=== PATIENT | male | born 1995 | race Hispanic/Latino ===

== ENCOUNTER 2020-07-28 22:54 | Inpatient (IN) | payer SELFPAY ==
[~2020-07-28] VITALS: Ht 172.7 cm; Wt 140.0 kg
[2020-07-28 23:28] LABS: BASOPHILS % (AUTO) 0.1 % (0.0-5.0); HEMATOCRIT 38.7 % (42-54); LYMPHOCYTES % (AUTO) 8.8 % (21.0-51.0); MEAN CORPUSCULAR HGB CONC 33.6 g/dL (32.0-36.0); MEAN CORPUSCULAR VOLUME 86.2 fL (79-99); MONOCYTES % (AUTO) 2.2 % (3.0-13.0); NEUTROPHILS % (AUTO) 88.6 % (40.0-77.0); PLATELET COUNT (AUTO) 275 K/uL (130-400); RED BLOOD CELL COUNT(AUTO) 4.49 MIL/uL (4.50-6.20); RED CELL DISTRIBUTION WIDTH 12.3 % (11.0-15.5); WHITE BLOOD COUNT (AUTO) 13.5 K/uL (4.8-10.8)
[2020-07-28] MEDS ORDERED: ONDANSETRON HCL 4 MG/2 ML VIAL ONE (23:28)
[2020-07-28] MEDS ORDERED: MORPHINE SULFATE 4 MG/1ML SYG ONE (23:29)
[2020-07-28 23:43] LABS: ALBUMIN 3.5 g/dL (3.5-5.0); BILIRUBIN,TOTAL 0.3 mg/dL (0.2-1.0); TOTAL PROTEIN, SERUM 8.2 g/dL (6.0-8.3)
[2020-07-29] MEDS ORDERED: IOHEXOL-350 75 ML VIAL IV ONE (00:47)
[2020-07-29 01:22] LABS: APPEARANCE,URINE Clear (CLEAR); BILIRUBIN,URINE Negative (NEGATIVE); COLOR,URINE Yellow (YELLOW); GLUCOSE, URINE (UA) Negative (NEGATIVE); KETONES,URINE Negative (NEGATIVE); LEUKOCYTE ESTERASE ,URINE Negative (NEGATIVE); NITRATE,URINE Negative (NEGATIVE); OCCULT BLOOD,URINE Negative (NEGATIVE); PROTEIN,URINE Negative (NEGATIVE); UROBILINOGEN,URINE 0.2 mg/dL (0.2-1.0)
[2020-07-29] MEDS: SODIUM CHLORIDE 0.9% 1000ML 1,000 ML IV SCH ×3 (01:30→17:30)
[2020-07-29] MEDS ORDERED: CEFTRIAXONE SODIUM 1 GM IV SCH (01:30)
[2020-07-29] MEDS ORDERED: ONDANSETRON HCL 4 MG/2 ML VIAL IV PRN (01:30)
[2020-07-29] MEDS ORDERED: DiphenhydrAMINE HCL 50 MG/ML VIAL IV PRN (01:30)
[2020-07-29 01:46] LABS: CHOLESTEROL 176 mg/dL (<200); HDL CHOLESTEROL 104 mg/dL (29-71); LDL DIRECT 110 mg/dL (0-99); TRIGLYCERIDES 96 mg/dL (30-200)
[2020-07-29 01:47] LABS: HEMOGLOBIN A1C 7.1 % (4.0-6.0)
[2020-07-29] MEDS ORDERED: HYDROMORPHONE HCL 0.5 MG/0.5 ML ML ONE (02:58)
[2020-07-29] MEDS ORDERED: CEFTRIAXONE SODIUM 1 GM ONE (03:08)
[2020-07-29 03:58] VITALS: BP 135/57
[2020-07-29] MEDS ORDERED: SODIUM CHLORIDE 0.9% 1000ML 1,000 ML IV ONE (03:59)
--- NOTE | 2020-07-29 04:00 | NUR ---
Admission Assessment Received pt from ED per lizette, dominickly conversant, DX: Pancreatitis, routine admission assessment done, plan of care discuss & updated with all test done in ED with all concern questions addressed. Per pt denies any medical / surgical issue except for a wisdom tooth extraction a year ago. 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 Pt stated abdominal pain started just prior to admission, & thinks Pancreatitis triggered by eating too much fatty food. Pt claimed didn't know being diabetic, given some advise on how to manage his diabetic. Made aware he has pending consult with a earrings fabricator re: DM. Pt reminded to remain NPO as part of his illness management, agreed. NS at 125cc/hr initiated at this time. Pt claimed does not take any medication except what was given to him in ED. Pt currently denies pain, received Dilaudid prior to coming up.
[2020-07-29] MEDS ORDERED: INSULIN HUMULIN R 100 UNIT/ML 3ML SQ SCH (06:00)
[2020-07-29] MEDS: INSULIN HUMULIN R 100 UNIT/ML 3ML SQ SCH ×3 (06:00→18:00)
--- NOTE | 2020-07-29 07:40 | NUR ---
ASSESSMENT ENCOUNTERED PT A&OX3, CALM COOPERATIVE AND DOES NOT APPEAR TO BE IN ANY DISTRESS NOR ANY NEURO DEFICITS PRESENT. PT DOES C/O EPIGASTRIC PAIN BUT DENIES NAUSEA OR VOMITING. PT IS NPO. PT IS AMBULATORY, GAIT SLOW BUT STEADY WITH STAND BY ASSIST, CALL LIGHT WITHIN REACH.
[2020-07-29 08:00] VITALS: BP 109/78
[2020-07-29] MEDS: FAMOTIDINE/PF 20 MG/2 ML VIAL IV SCH ×2 (10:22→19:40)
[2020-07-29] MEDS: ENOXAPARIN SODIUM 40 MG/0.4 ML SYRINGE SQ SCH (10:22)
[2020-07-29] MEDS: HYDROMORPHONE HCL 0.5 MG/0.5 ML ML IVP PRN ×3 (10:23→19:41)
[2020-07-29 11:18] VITALS: BP 120/72
[2020-07-29 16:00] VITALS: BP 118/63
--- NOTE | 2020-07-29 17:12 | NUR ---
INITIAL SW met with patient. He states he lives with his spouse, Carmen Santana. No home services. DME: [employer]. Patient is able to complete ADL's independently and drives. 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 PCP is Dr. Edward Almanzar. Pharmacy is [facility] located on [address] [place] [address]. DCP is home. Patient has no insurance or benefits. He is a [place] citizen and is working. Patient was provided with community resources for post hospitalization follow up. Patient was also provided with Good RX card for prescriptions and educated on [employer] $4 medication program and [employer] $5 medication program. Patient is being assisted by [employer] for financial matters. Addendum: 07/29/20 at 1717 by EVELYNE MCBRIDE Amended: Links added.
[2020-07-29 20:44] VITALS: BP 108/69
[2020-07-30] VITALS (7 sets, daily range): BP systolic 101–137; BP diastolic 46–82
[2020-07-30] MEDS: HYDROMORPHONE HCL 0.5 MG/0.5 ML ML IVP PRN ×5 (00:52→20:53)
[2020-07-30] MEDS: SODIUM CHLORIDE 0.9% 1000ML 1,000 ML IV SCH ×3 (01:23→17:30)
[2020-07-30 05:21] LABS: BASOPHILS % (AUTO) 0.1 % (0.0-5.0); EOSINOPHILS % (AUTO) 0.1 % (0.0-8.0); HEMATOCRIT 36.4 % (42-54); MEAN CORPUSCULAR HEMOGLOBIN 28.7 pg (27.0-33.0); MEAN CORPUSCULAR HGB CONC 32.4 g/dL (32.0-36.0); MEAN CORPUSCULAR VOLUME 88.6 fL (79-99); MONOCYTES % (AUTO) 7.5 % (3.0-13.0); NEUTROPHILS % (AUTO) 82.9 % (40.0-77.0); PLATELET COUNT (AUTO) 249 K/uL (130-400); RED BLOOD CELL COUNT(AUTO) 4.11 MIL/uL (4.50-6.20); RED CELL DISTRIBUTION WIDTH 12.7 % (11.0-15.5); WHITE BLOOD COUNT (AUTO) 16.6 K/uL (4.8-10.8)
[2020-07-30 05:43] LABS: ALBUMIN 3.1 g/dL (3.5-5.0); BILIRUBIN,DIRECT 0.1 mg/dL (0.0-0.3); BILIRUBIN,TOTAL 0.4 mg/dL (0.2-1.0); CREATININE 0.8 mg/dL (0.5-1.5); MAGNESIUM 1.6 mg/dL (1.80-2.40); POTASSIUM 3.7 mmol/L (3.5-5.1)
[2020-07-30] MEDS: INSULIN HUMULIN R 100 UNIT/ML 3ML SQ SCH ×4 (05:48→18:00)
--- NOTE | 2020-07-30 07:30 | NUR ---
ASSESSMENT ENCOUNTERED PT A&OX3, CALM COOPERATIVE AND DOES NOT APPEAR TO BE IN ANY DISTRESS NOR ANY NEURO DEFICITS PRESENT. PT DOES C/O INTERMITTENT EPIGASTRIC PAIN THAT HAS IMPROVED FROM PREVIOUS DAY BUT DENIES SOB, NAUSEA. PT IS AMBULATORY, GAIT STEADY AND STRONG WITH STAND BY ASSIST. PT CONTINUES TO BE NPO, CALL LIGHT WITHIN REACH.
[2020-07-30] MEDS ORDERED: ACETAMINOPHEN 650 MG SUPPOSITORY RC PRN (07:45)
[2020-07-30] MEDS: ENOXAPARIN SODIUM 40 MG/0.4 ML SYRINGE SQ SCH (07:59)
[2020-07-30] MEDS: FAMOTIDINE/PF 20 MG/2 ML VIAL IV SCH ×2 (07:59→20:51)
[2020-07-30] MEDS: MAGNESIUM 2GM PREMIX 50ML 50 ML IV PRN (08:01)
[2020-07-30] MEDS: LIDOCAINE HCL-MPF 1% 2ML VIAL IV PRN (23:03)
[2020-07-30] MEDS: POTASSIUM CHLORIDE 20MEQ/100ML 100 ML IV PRN (23:03)
--- NOTE | 2020-07-30 23:12 | NUR ---
K+ PROTOCOL INITIATED X1 BAG OF POTASSIUM PER PROTOCOL. PT QUANG WELL. WILL RE-ASSESS LEVELS WITH AM LABS.
[2020-07-31] MEDS: HYDROMORPHONE HCL 0.5 MG/0.5 ML ML IVP PRN ×5 (00:40→23:40)
[2020-07-31] MEDS: SODIUM CHLORIDE 0.9% 1000ML 1,000 ML IV SCH ×3 (01:30→18:06)
[2020-07-31 03:42] VITALS: BP 128/72
[2020-07-31 05:08] LABS: BASOPHILS % (AUTO) 0.2 % (0.0-5.0); EOSINOPHILS % (AUTO) 0.5 % (0.0-8.0); HEMATOCRIT 37.6 % (42-54); LYMPHOCYTES % (AUTO) 9.3 % (21.0-51.0); MEAN CORPUSCULAR HEMOGLOBIN 28.9 pg (27.0-33.0); MEAN CORPUSCULAR HGB CONC 32.7 g/dL (32.0-36.0); MEAN CORPUSCULAR VOLUME 88.5 fL (79-99); NEUTROPHILS % (AUTO) 82.3 % (40.0-77.0); PLATELET COUNT (AUTO) 267 K/uL (130-400); RED BLOOD CELL COUNT(AUTO) 4.25 MIL/uL (4.50-6.20); RED CELL DISTRIBUTION WIDTH 12.8 % (11.0-15.5); WHITE BLOOD COUNT (AUTO) 18.3 K/uL (4.8-10.8)
[2020-07-31 05:29] LABS: ALBUMIN 3.1 g/dL (3.5-5.0); CREATININE 0.8 mg/dL (0.5-1.5); MAGNESIUM 1.9 mg/dL (1.80-2.40); PHOSPHORUS 2.6 mg/dL (2.5-4.9); POTASSIUM 3.6 mmol/L (3.5-5.1); TOTAL PROTEIN, SERUM 7.8 g/dL (6.0-8.3)
[2020-07-31] MEDS: INSULIN HUMULIN R 100 UNIT/ML 3ML SQ SCH ×4 (06:00→18:00)
[2020-07-31 08:22] VITALS: BP 129/83
[2020-07-31] MEDS: FAMOTIDINE/PF 20 MG/2 ML VIAL IV SCH ×2 (09:03→20:19)
[2020-07-31] MEDS: ENOXAPARIN SODIUM 40 MG/0.4 ML SYRINGE SQ SCH (09:04)
--- NOTE | 2020-07-31 12:00 | NUR ---
DIET. CL LIQ STATED THAT IT WAS OKAY BUT HAVING PAIN. TO HIS BACK . MORE TODAY THAN YESTERDAY. AMBULATING IN THE ROOM REVIEW FALL RISK AND CALL LIGHT WILL FOLLOWUP WITH PAIN STATUS .
[2020-07-31 12:07] VITALS: BP 139/70
[2020-07-31] MEDS ORDERED: IBUP-2077 PO (14:43)
--- NOTE | 2020-07-31 15:05 | NUR ---
RD NOTE Pt admitted to hospital due to pancreatitis. Pt is currently on a CLD and tolerating orally. Pt's BMI is of 47.2, considered obesity III. Upon hospital admission pt had elevated A1c and random blood sugar level of 206; pt was then dx with DM as per EMR. RD consulted for DM education, completed on 07/31/20. RD recommendation: when medically appropriate advance diet to a 75 GM CC. Monitor PO tolerance/intake, and lab values LABS: A1C 7.1, BG 116, ALB 3.1, TOT PRO 7.8, TG 96, HDL 104, LDL 110, BUN 5 LBM: 07/28/20 as per EMR Addendum: 07/31/20 at [address] Amended: Links added.
--- NOTE | 2020-07-31 16:49 | NUR ---
DR. DE LEON CONSULTATION DR. ADKINS CONSULTATION DONE. AND PT IS GOING TO CT S CAN OF THE ABD . WITHOUT CONTRAST. .
[2020-07-31 16:56] VITALS: BP 120/82
--- NOTE | 2020-07-31 17:01 | NUR ---
RD NOTE Pt seen due to new DM dx. Pt stated being familiar with the dietary recommendations. Pt was given handouts and was provided with alternatives to common drinks, and foods. CHO counting was introduced along with healthy plate information for diabetics. Pt verbalized understanding and stated information was helpful for him. Contact dietary for any nutritional concerns. Addendum: 07/31/20 at [address] Amended: Links added.
[2020-07-31 20:16] VITALS: BP 120/65
[2020-07-31] MEDS: MAGNESIUM 2GM PREMIX 50ML 50 ML IV PRN (20:20)
[2020-07-31] MEDS: POTASSIUM CHLORIDE 20MEQ/100ML 100 ML IV PRN (21:31)
[2020-07-31] MEDS: LIDOCAINE HCL-MPF 1% 2ML VIAL IV PRN (21:31)
--- NOTE | 2020-07-31 23:40 | NUR ---
PAIN Pt medicated with Dilaudid for pain,remains NPO.
[2020-08-01] VITALS (7 sets, daily range): BP systolic 124–145; BP diastolic 56–85
--- NOTE | 2020-08-01 00:40 | NUR ---
MED EFFECT Pt verbalized relief of pain.
[2020-08-01] MEDS: SODIUM CHLORIDE 0.9% 1000ML 1,000 ML IV SCH ×3 (01:59→22:18)
[2020-08-01] MEDS: HYDROMORPHONE HCL 0.5 MG/0.5 ML ML IVP PRN ×4 (03:18→23:32)
--- NOTE | 2020-08-01 03:32 | NUR ---
BACK PAIN Pt medicated with Dilaudid for c/o of back pain.
[2020-08-01 04:52] LABS: BASOPHILS % (AUTO) 0.2 % (0.0-5.0); EOSINOPHILS % (AUTO) 1.2 % (0.0-8.0); HEMATOCRIT 35.1 % (42-54); LYMPHOCYTES % (AUTO) 8.9 % (21.0-51.0); MEAN CORPUSCULAR HGB CONC 32.8 g/dL (32.0-36.0); MEAN CORPUSCULAR VOLUME 88.6 fL (79-99); MONOCYTES % (AUTO) 5.6 % (3.0-13.0); NEUTROPHILS % (AUTO) 83.4 % (40.0-77.0); PLATELET COUNT (AUTO) 259 K/uL (130-400); RED BLOOD CELL COUNT(AUTO) 3.96 MIL/uL (4.50-6.20); RED CELL DISTRIBUTION WIDTH 12.5 % (11.0-15.5); WHITE BLOOD COUNT (AUTO) 16.2 K/uL (4.8-10.8)
[2020-08-01 05:17] LABS: ALBUMIN 2.8 g/dL (3.5-5.0); BILIRUBIN,TOTAL 0.7 mg/dL (0.2-1.0); CREATININE 0.7 mg/dL (0.5-1.5); POTASSIUM 3.8 mmol/L (3.5-5.1); TOTAL PROTEIN, SERUM 7.3 g/dL (6.0-8.3)
[2020-08-01] MEDS: INSULIN HUMULIN R 100 UNIT/ML 3ML SQ SCH ×4 (05:59→18:00)
[2020-08-01] MEDS: FAMOTIDINE/PF 20 MG/2 ML VIAL IV SCH ×2 (07:53→22:17)
[2020-08-01] MEDS: ENOXAPARIN SODIUM 40 MG/0.4 ML SYRINGE SQ SCH (07:54)
[2020-08-01] MEDS: ZOSYN 3.375GM+NS 50ML 50 ML IV SCH ×2 (11:56→18:54)
--- NOTE | 2020-08-01 13:45 | NUR ---
NUCLEAR MED/HIDA SCAN. Personnel called to check on patient status. I let personnel know that patient is receiving Dilaudid 0.5 q3h for pain. Personnel insisted that patient is not a candidate for HIDA scan and must have a wait time of 6hrs despite being neurologically stable, ambulatory and on room air. Personnel states that HIDA scan will be rescheduled for tomorrow as Dilaudid was administered a few minutes ago and out of the 6hr wait window.
[2020-08-01] MEDS ORDERED: SINCALIDE 5 MCG ML VIAL IV ONE (21:14)
--- NOTE | 2020-08-01 21:30 | NUR ---
HIDA Pt still in HIDA SCAN.
--- NOTE | 2020-08-01 22:17 | NUR ---
BACK Back from Hida scan,denies pain.
--- NOTE | 2020-08-01 23:32 | NUR ---
PAIN Medicated with Dilaudid for c/o of back pain.
--- NOTE | 2020-08-02 00:32 | NUR ---
MED EFFECT Resting quietly,voiced no pain.
[2020-08-02] MEDS: SODIUM CHLORIDE 0.9% 1000ML 1,000 ML IV SCH ×4 (01:30→23:01)
[2020-08-02] MEDS: ZOSYN 3.375GM+NS 50ML 50 ML IV SCH ×3 (03:06→19:40)
[2020-08-02 04:17] VITALS: BP 123/72
[2020-08-02] MEDS: INSULIN HUMULIN R 100 UNIT/ML 3ML SQ SCH ×5 (06:00→19:41)
[2020-08-02 07:30] VITALS: BP 124/71
[2020-08-02] MEDS: FAMOTIDINE/PF 20 MG/2 ML VIAL IV SCH ×2 (08:16→19:40)
[2020-08-02] MEDS: ENOXAPARIN SODIUM 40 MG/0.4 ML SYRINGE SQ SCH (08:17)
[2020-08-02 11:00] VITALS: BP 119/69
[2020-08-02 11:48] LABS: HEMATOCRIT 37.9 % (42-54); MEAN CORPUSCULAR HEMOGLOBIN 29.1 pg (27.0-33.0); MEAN CORPUSCULAR VOLUME 88.3 fL (79-99); PLATELET COUNT (AUTO) 324 K/uL (130-400); RED BLOOD CELL COUNT(AUTO) 4.29 MIL/uL (4.50-6.20); RED CELL DISTRIBUTION WIDTH 12.8 % (11.0-15.5); WHITE BLOOD COUNT (AUTO) 13.1 K/uL (4.8-10.8)
[2020-08-02 12:04] LABS: ALBUMIN 3.2 g/dL (3.5-5.0); BILIRUBIN,DIRECT 0.5 mg/dL (0.0-0.3); CREATININE 0.8 mg/dL (0.5-1.5); POTASSIUM 3.5 mmol/L (3.5-5.1)
[2020-08-02 13:06] LABS: BASOPHILS % (MANUAL) 1 % (0-2); EOSINOPHILS % (MANUAL) 3 % (1-6); LYMPHOCYTES % (MANUAL) 19 % (22-44); MAN.DIFF COMMENT-IMPRESSION MANUAL DIFFERENTIAL; MONOCYTES % (MANUAL) 4 % (2-9); PLATELET MORPHOLOGY COMMENT ADEQUATE; SEGMENTED NEUTROPHILS % 73 % (40-70)
[2020-08-02 16:00] VITALS: BP 119/59
--- NOTE | 2020-08-02 19:40 | NUR ---
MEDS SHIFT ASSESSMENT DONE, PLEASE REFER TO CHART. DUE MEDS ADMINISTERED, TOLERATED WELL. KEPT COMFORTABLE IN BED. CALL LIGHT WITHIN REACH. WILL MONITOR PT. Addendum: 08/02/20 at 2137 by CA CHING RN RN Amended: Links added.
[2020-08-02 20:09] VITALS: BP 127/71
--- NOTE | 2020-08-02 20:58 | NUR ---
CRITICAL LAB CALLED WITH CRITICAL LEVEL OF [id number]. PAGED STELLA MELENDREZ DEFECT CUTTER FOR [employer], VIA ANSWERING SERVICE. AWAITING CALL BACK.
--- NOTE | 2020-08-02 21:08 | NUR ---
CALL BACK STELLA MELENDREZ FOR [facility], CALLED BACK. REFERRED CRITICAL VALUE OF [id number]. NO NEW ORDERS GIVEN.
[2020-08-03] VITALS (7 sets, daily range): BP systolic 103–132; BP diastolic 56–72
--- NOTE | 2020-08-03 00:15 | NUR ---
RE-CHECKED PT'S TEMPERATURE RE-CHECKED PCP REPORTED PT'S TEMPERATURE 100 DEGREES. PT VERBALIZES THAT HE WAS COVERED WITH BLANKET HE WAS READY TO GO TO SLEEP. TEMPERATURE RE-CHECK=98.7. KEPT COMFORTABLE. ENCOURAGED TO SLEEP AND REST.
--- NOTE | 2020-08-03 02:00 | NUR ---
ROUNDS PT RESTIGN WELL, NO DISTRESS NOTED. KEPT UNDISTURBED FOR NOW. WILL CONTINUE TO MONITOR. CALL LIGHT WITHIN REACH.
[2020-08-03] MEDS: ZOSYN 3.375GM+NS 50ML 50 ML IV SCH ×3 (03:00→20:50)
[2020-08-03] MEDS ORDERED: POTASSIUM CHLORIDE 20MEQ/100ML 100 ML IV PRN (03:15)
[2020-08-03] MEDS ORDERED: POTASSIUM CHLORIDE 10% ELIXIR 20 MEQ/15 ML UDCUP PO PRN (03:15)
[2020-08-03] MEDS ORDERED: LIDOCAINE HCL-MPF 1% 2ML VIAL IV PRN (03:15)
[2020-08-03 05:27] LABS: BASOPHILS % (AUTO) 0.3 % (0.0-5.0); EOSINOPHILS % (AUTO) 2.5 % (0.0-8.0); HEMATOCRIT 35.3 % (42-54); LYMPHOCYTES % (AUTO) 14.4 % (21.0-51.0); MEAN CORPUSCULAR HEMOGLOBIN 28.5 pg (27.0-33.0); MEAN CORPUSCULAR HGB CONC 32.3 g/dL (32.0-36.0); MEAN CORPUSCULAR VOLUME 88.3 fL (79-99); MONOCYTES % (AUTO) 6.8 % (3.0-13.0); NEUTROPHILS % (AUTO) 75.4 % (40.0-77.0); PLATELET COUNT (AUTO) 325 K/uL (130-400); RED CELL DISTRIBUTION WIDTH 12.8 % (11.0-15.5); WHITE BLOOD COUNT (AUTO) 12.3 K/uL (4.8-10.8)
[2020-08-03 05:57] LABS: ALBUMIN 2.8 g/dL (3.5-5.0); BILIRUBIN,DIRECT 0.4 mg/dL (0.0-0.3); BILIRUBIN,TOTAL 0.8 mg/dL (0.2-1.0); CREATININE 0.9 mg/dL (0.5-1.5); MAGNESIUM 1.7 mg/dL (1.80-2.40); POTASSIUM 3.3 mmol/L (3.5-5.1); TOTAL PROTEIN, SERUM 7.4 g/dL (6.0-8.3)
[2020-08-03] MEDS: INSULIN HUMULIN R 100 UNIT/ML 3ML SQ SCH ×4 (06:21→20:19)
[2020-08-03] MEDS: MAGNESIUM 2GM PREMIX 50ML 50 ML IV PRN (06:35)
[2020-08-03] MEDS: SODIUM CHLORIDE 0.9% 1000ML 1,000 ML IV SCH ×3 (06:35→17:41)
[2020-08-03] MEDS: POTASSIUM CHLORIDE 20 MEQ ERTAB PO PRN ×2 (06:35→14:40)
--- NOTE | 2020-08-03 06:35 | NUR ---
REPLACE PT'S POTASSIUM =3.3, MG=1.7. STARTED ON PO REPLACEMENT OF POTASSIUM AND IV REPLACEMENT OF MAGNESIUM. NEW IV BAG HUNG. PT TOLERATED MEDS WELL. KEPT RESTED AND COMFORTABLE. FOR MORE CARE.
[2020-08-03] MEDS: ENOXAPARIN SODIUM 40 MG/0.4 ML SYRINGE SQ SCH (09:03)
[2020-08-03] MEDS: FAMOTIDINE/PF 20 MG/2 ML VIAL IV SCH ×2 (09:03→20:49)
[2020-08-03] MEDS ORDERED: MAGNESIUM 2GM PREMIX 50ML 50 ML IV PRN (11:00)
[2020-08-03] MEDS ORDERED: IOHEXOL-350 75 ML VIAL IV ONE (11:58)
[2020-08-03] MEDS ORDERED: IOHEXOL-350 50ML VIAL IV ONE (12:00)
[2020-08-04] MEDS: SODIUM CHLORIDE 0.9% 1000ML 1,000 ML IV SCH (02:17)
[2020-08-04 03:48] VITALS: BP 122/68
[2020-08-04] MEDS: ZOSYN 3.375GM+NS 50ML 50 ML IV SCH ×2 (04:45→08:53)
[2020-08-04] MEDS: INSULIN HUMULIN R 100 UNIT/ML 3ML SQ SCH ×2 (05:27→11:30)
[2020-08-04 05:35] LABS: BASOPHILS % (AUTO) 0.3 % (0.0-5.0); EOSINOPHILS % (AUTO) 2.8 % (0.0-8.0); HEMATOCRIT 35.2 % (42-54); LYMPHOCYTES % (AUTO) 15.1 % (21.0-51.0); MEAN CORPUSCULAR HEMOGLOBIN 28.3 pg (27.0-33.0); MEAN CORPUSCULAR HGB CONC 31.8 g/dL (32.0-36.0); MEAN CORPUSCULAR VOLUME 88.9 fL (79-99); MONOCYTES % (AUTO) 7.5 % (3.0-13.0); NEUTROPHILS % (AUTO) 73.7 % (40.0-77.0); PLATELET COUNT (AUTO) 308 K/uL (130-400); RED BLOOD CELL COUNT(AUTO) 3.96 MIL/uL (4.50-6.20); RED CELL DISTRIBUTION WIDTH 12.7 % (11.0-15.5); WHITE BLOOD COUNT (AUTO) 10.2 K/uL (4.8-10.8)
[2020-08-04 05:57] LABS: ALBUMIN 2.7 g/dL (3.5-5.0); BILIRUBIN,DIRECT 0.2 mg/dL (0.0-0.3); BILIRUBIN,TOTAL 0.4 mg/dL (0.2-1.0); CREATININE 0.7 mg/dL (0.5-1.5); MAGNESIUM 2.1 mg/dL (1.80-2.40); POTASSIUM 3.7 mmol/L (3.5-5.1); TOTAL PROTEIN, SERUM 6.9 g/dL (6.0-8.3)
[2020-08-04 05:59] LABS: B-TYPE NATRIURETIC PEPTIDE 13 pg/mL (0-100)
[2020-08-04 08:00] VITALS: BP 130/76
[2020-08-04] MEDS: FAMOTIDINE/PF 20 MG/2 ML VIAL IV SCH (08:52)
[2020-08-04] MEDS: ENOXAPARIN SODIUM 40 MG/0.4 ML SYRINGE SQ SCH (08:52)
[2020-08-04 12:00] VITALS: BP 135/77
== END 2020-08-04 15:00 | disposition home or self-care (01) | DRG 439 ==
LOC: EDH 22:54 → EDHIP 22:55 → OBSVTOIN 22:55 → 4BH 07-29 03:51
PROVIDERS: ADMIT Internal Medicine Critical Care Medicine; ATTEND Internal Medicine Critical Care Medicine
DX: K85.90 Acute pancreatitis without necrosis or infection, unspecified (principal); Z68.42 Body mass index [BMI] 45.0-49.9, adult; K76.0 Fatty (change of) liver, not elsewhere classified; D72.829 Elevated white blood cell count, unspecified; E11.9 Type 2 diabetes mellitus without complications; E66.01 Morbid (severe) obesity due to excess calories; K82.8 Other specified diseases of gallbladder; Z20.828 Contact with and (suspected) exposure to other viral communicable diseases; Z91.030 Bee allergy status
CPT/HCPCS: 36415; 71045; 71275; 72072; 74150; 74177; 76705; 78227; 80048; 80053; 80061; 80076; 81003; 82150; 82247; 82248; 82550; 82948; 83036; 83690; 83735; 83880; 84100; 84145; 84478; 84484; 85025; 85378; 87040; 87426; 93005; 93970; A9537; G0378; J0696; J1170; J1200; J1650; J2270; J2405; J2543; J2805; J3475; J3480; J3490; J7030; Q9967; U0003

== ENCOUNTER 2021-11-09 09:43 | Emergency (ER) | payer OTHER, SELFPAY ==
[~2021-11-09] VITALS: Ht 167.6 cm; Wt 120.7 kg
[~2021-11-09 09:43] MED LIST: IBUP-2077 PO
[2021-11-09] MEDS ORDERED: KETOROLAC 60 MG VIAL (30MG/ML) IM SCH (10:30)
[2021-11-09] MEDS ORDERED: DICL50TA9 PO (11:28)
[2021-11-09] MEDS ORDERED: CYCL10TA16 PO (11:28)
[2021-11-09 12:06] VITALS: BP 102/50
== END 2021-11-09 12:00 | disposition home or self-care (01) ==
LOC: EDH 09:43
DX: S30.0XXA Contusion of lower back and pelvis, initial encounter (principal); E11.9 Type 2 diabetes mellitus without complications; Z79.1 Long term (current) use of non-steroidal anti-inflammatories (NSAID); W18.39XA Other fall on same level, initial encounter; Y93.89 Activity, other specified; Y92.89 Other specified places as the place of occurrence of the external cause; Y99.8 Other external cause status
CPT/HCPCS: 72100; 72220; 96372; 99284; J1885